=== PATIENT | male | born 1990 | race African-American/Black ===

== ENCOUNTER 2025-07-07 17:15 | Emergency (ER) | payer MEDICAID, OTHER ==
[~2025-07-07] VITALS: Ht 177.8 cm; Wt 86.4 kg
[~2025-07-07 17:15] MED LIST: RISP4TAB31 PO
[2025-07-07 17:29] VITALS: BP 98/68; PULSE 68; RESP 20; TEMP 97.7; O2SAT 98
[2025-07-07] MEDS: ACETAMINOPHEN 500 MG TABLET PO ONE (17:45)
== END 2025-07-07 20:16 | disposition home or self-care (01) ==
LOC: EMS 17:15
DX: S00.83XA Contusion of other part of head, initial encounter (principal); F20.9 Schizophrenia, unspecified; Z79.899 Other long term (current) drug therapy; Y08.89XA Assault by other specified means, initial encounter; Y93.89 Activity, other specified; Y92.89 Other specified places as the place of occurrence of the external cause; Y99.9 Unspecified external cause status
CPT/HCPCS: 70450; 70486; 72125; 99284